=== PATIENT | male | born 2000 | race Asian ===

== ENCOUNTER 2024-08-24 23:25 | Emergency (ER) | payer OTHER ==
[~2024-08-24] VITALS: Ht 172.7 cm; Wt 86.4 kg
[2024-08-24] MEDS: LIDOCAINE 2% MDV 20ML VIAL SC ONE (23:55)
[2024-08-25] MEDS: NEOSPORIN OINT 0.9 GM PKT TOP ONE (00:50)
[2024-08-25 00:55] VITALS: BP 147/74; O2SAT 99
== END 2024-08-25 01:05 | disposition home or self-care (01) ==
LOC: M ED 23:25
DX: S01.81XA Laceration without foreign body of other part of head, initial encounter (principal); W01.198A Fall on same level from slipping, tripping and stumbling with subsequent striking against other object, initial encounter; Y92.009 Unspecified place in unspecified non-institutional (private) residence as the place of occurrence of the external cause; Y93.89 Activity, other specified; Y99.9 Unspecified external cause status